=== PATIENT | female | born 1970 | race Caucasian/White ===

== ENCOUNTER 2017-09-18 12:38 | Emergency (ER) | payer SELFPAY ==
[~2017-09-18] VITALS: Ht 154.9 cm; Wt 73.0 kg
[2017-09-18 12:42] VITALS: BP 155/90; PULSE 82; RESP 16; TEMP 98; O2SAT 98
--- NOTE | 2017-09-18 13:05 | PD ---
HPI Chief Complaint: ENT Complaint Time Seen by Provider: 12:48 Travel History International Travel<30 days: No Contact w/Intl Traveler<30days: No Traveled to known affect area: No History of Present Illness HPI Patient reports foreign body sensation in the left ear. Duration about 1 day. Timing is intermittent. Severity mild. no loss of hearing. Positive tinnitus. Onset sudden. PFSH Past Medical History Medical History: Denies Significant Hx Diminished Hearing: No Influenza Vaccination: No ?: Not Past Surgical History Surgical History: No Previous Surgery Social History Alcohol Use: No Tobacco Use: Yes (1 PPD) Allergies-Medications (Allergen,Severity, Reaction): Coded Allergies: No Known Allergies (Unverified Adverse Reaction, Unknown, 09/18/17) Reported Meds & Prescriptions Reported Meds & Active Scripts Active No Active Prescriptions or Reported Medications Review of Systems General / Constitutional: No: Fever Respiratory: No: Cough, Shortness of Breath, Wheezing Physical Exam Narrative GENERAL: 47 yo F, NAD, WNWD EARS: Along the L TM there is 1 hair follicle about 1 cm in length. no mastoid tenderness. no otorrhea. SKIN: Warm and dry. HEAD: Normocephalic. EYES: No scleral icterus. No injection or drainage. NECK: Supple, trachea midline. No JVD or lymphadenopathy. CARDIOVASCULAR: Regular rate and rhythm without murmurs, gallops, or rubs. RESPIRATORY: Breath sounds equal bilaterally. No accessory muscle use. GASTROINTESTINAL: Abdomen soft, non-tender, nondistended. MUSCULOSKELETAL: No cyanosis, or edema. BACK: Nontender without obvious deformity. No CVA tenderness. Data Data Last Documented VS Vital Signs Date Time Temp Pulse Resp B/P (MAP) Pulse Ox O2 Delivery O2 Flow Rate FiO2 09/18/17 12:42 98.0 82 16 155/90 (111) 98 VS reviewed Orders Orders Ed Discharge Order (09/18/17 13:05) MDM Medical Decision Making Medical Screen Exam Complete: Yes Emergency Medical Condition: Yes Medical Record Reviewed: Yes Differential Diagnosis Foreign body, otitis media, otitis externa Narrative Course Patient has a minute hair on the tympanic membrane on the left side. Lidocaine was instilled into the external ear canal. It was then irrigated. Reexamination reveals no foreign body/hair. Patient reports improvement and is ready for discharge. Diagnosis Primary Impression: Foreign body in ear Qualified Codes: T16.2XXA - Foreign body in left ear, initial encounter Med/Other Pt SpecificInfo: No Change to Meds Scripts No Active Prescriptions or Reported Meds Disposition: 01 DISCHARGE HOME Condition: Stable Juan Thompson MD Sep 18, 2017 13:05
== END 2017-09-18 13:25 | disposition home or self-care (01) ==
LOC: PHEFT 12:38
DX: T16.2XXA Foreign body in left ear, initial encounter (principal); F17.200 Nicotine dependence, unspecified, uncomplicated
CPT/HCPCS: 99283

== ENCOUNTER 2018-01-01 10:27 | Emergency (ER) | payer SELFPAY ==
[~2018-01-01] VITALS: Ht 154.9 cm; Wt 75.0 kg
[2018-01-01 10:34] VITALS: BP 116/73; PULSE 109; RESP 16; TEMP 99.5; O2SAT 96
--- NOTE | 2018-01-01 11:41 | PD ---
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 Pt said she has been having dysuria, felt warm but no documented fever, and has vaginal itching. Pt also said she has been having flu like symptoms with coughing and feels like her chest hurts when she coughs. Denies any n/v, abdominal pain, focal weakness or numbness. PFSH Past Medical History Diminished Hearing: No ?: Not LMP: menapause Social History Alcohol Use: No Tobacco Use: Yes (1 PPD) Allergies-Medications (Allergen,Severity, Reaction): Coded Allergies: No Known Allergies (Unverified Adverse Reaction, Unknown, 01/01/18) Reported Meds & Prescriptions Reported Meds & Active Scripts Active Bactrim DS (Sulfamethoxazole-Trimethoprim) 800-160 Mg Tab 1 Tab PO BID Review of Systems Except as stated in HPI: all other systems reviewed are Neg Physical Exam Narrative GENERAL: 47yo F not in distress. SKIN: Focused skin assessment warm/dry. HEAD: Atraumatic. Normocephalic. EYES: Pupils equal and round. No scleral icterus. No injection or drainage. ENT: Throat: Uvula midline. No exudate. NECK: Trachea midline. No JVD. CARDIOVASCULAR: Regular rate and rhythm. No murmur appreciated. RESPIRATORY: No accessory muscle use. Clear to auscultation. Breath sounds equal bilaterally. GASTROINTESTINAL: Abdomen soft, non-tender, nondistended.. PELVIC: +Erythematous rash with central clearing in bilateral medial thighs. Pt said that is the area that is itching. +White vaginal discharge. No CMT or adnexal tenderness bilaterally. MUSCULOSKELETAL: No obvious deformities. No clubbing. No cyanosis. No edema. NEUROLOGICAL: Awake and alert. No obvious cranial nerve deficits. Motor grossly within normal limits. Normal speech. PSYCHIATRIC: Appropriate mood and affect; insight and judgment normal. Data Data Last Documented VS Vital Signs Date Time Temp Pulse Resp B/P (MAP) Pulse Ox O2 Delivery O2 Flow Rate FiO2 01/01/18 13:31 86 18 106/61 (76) 100 Room Air 01/01/18 10:34 99.5 Orders Orders Electrocardiogram (01/01/18 ) Complete Blood Count With Diff (01/01/18 11:40) Basic Metabolic Panel (Bmp) (01/01/18 11:40) Troponin I (01/01/18 11:40) Chest, Single Ap (01/01/18 ) Ed Urine Pregnancytest Poc (01/01/18 11:40) Urinalysis - C+S If Indicated (01/01/18 11:40) Gc And Chlamydia Pcr (01/01/18 11:40) Wet Prep Profile (01/01/18 11:40) Influenzae A/B Antigen (01/01/18 11:40) Thyroid Stimulating Hormone (01/01/18 11:45) Urine Culture (01/01/18 12:10) Ed Discharge Order (01/01/18 13:33) Labs Laboratory Tests Test 01/01/18 11:45 01/01/18 12:00 01/01/18 12:10 White Blood Count 7.2 TH/MM3 Red Blood Count 5.25 MIL/MM3 Hemoglobin 14.1 GM/DL Hematocrit 44.4 % Mean Corpuscular Volume 84.5 FL Mean Corpuscular Hemoglobin 26.8 PG Mean Corpuscular Hemoglobin Concent 31.7 % Red Cell Distribution Width 12.9 % Platelet Count 357 TH/MM3 Mean Platelet Volume 7.4 FL Neutrophils (%) (Auto) 70.4 % Lymphocytes (%) (Auto) 17.0 % Monocytes (%) (Auto) 11.4 % Eosinophils (%) (Auto) 0.0 % Basophils (%) (Auto) 1.2 % Neutrophils # (Auto) 5.1 TH/MM3 Lymphocytes # (Auto) 1.2 TH/MM3 Monocytes # (Auto) 0.8 TH/MM3 Eosinophils # (Auto) 0.0 TH/MM3 Basophils # (Auto) 0.1 TH/MM3 CBC Comment AUTO DIFF Differential Comment AUTO DIFF CONFIRMED Blood Urea Nitrogen 7 MG/DL Creatinine 0.85 MG/DL Random Glucose 106 MG/DL Calcium Level 8.8 MG/DL Sodium Level 136 MEQ/L Potassium Level 3.5 MEQ/L Chloride Level 98 MEQ/L Carbon Dioxide Level 29.4 MEQ/L Anion Gap 9 MEQ/L Estimat Glomerular Filtration Rate 72 ML/MIN Troponin I LESS THAN 0.02 NG/ML Thyroid Stimulating Hormone 3rd Gen 0.981 uIU/ML Clue Cells (Wet Prep) NONE SEEN Vaginal Trichomonas (Wet Prep) NONE SEEN Vaginal Yeast (Wet Prep) NONE SEEN Urine Collection Type CLEAN CATCH Urine Color YELLOW Urine Turbidity SL CLOUDY Urine pH 6.0 Urine Specific [place] 1.015 Urine Protein TRACE mg/dL Urine Glucose (UA) NEG mg/dL Urine Ketones NEG mg/dL Urine Occult Blood SMALL Urine Nitrite NEG Urine Bilirubin NEG Urine Urobilinogen 1.0 MG/DL Urine Leukocyte Esterase SMALL Urine RBC 10-14 /hpf Urine WBC 100-200 /hpf Urine WBC Clumps MOD Urine Squamous Epithelial Cells 0-5 /hpf Urine Bacteria FEW /hpf Microscopic Urinalysis Comment CULTURE INDICATED Urine Collection Time 12:10 [facility] Medical Decision Making Medical Screen Exam Complete: Yes Emergency Medical Condition: Yes Interpretation(s) EKG: NSR 89bpm. LAD. No ST segment elevation or depression. Differential Diagnosis Tinea vs. UTI vs. vaginal candidiasis vs. viral syndrome vs. pneumonia Narrative Course 47yo F here with multiple complaints. Labs reviewed, no leukocytosis. H/H normal. BMP unremarkable. Troponin negative. TSH normal. UA showed large WBC. Few bacteria. Wet prep negative. Influenza negative. CXR shwoed 5mm nodule left mid lung which I informed the patient to follow up with. Pt given dose of bactrim. Return precautions given. Diagnosis Primary Impression: UTI (urinary tract infection) Qualified Codes: N39.0 - Urinary tract infection, site not specified; R31.9 - Hematuria, unspecified Patient Instructions: General Instructions Departure Forms: Tests/Procedures Additional Instructions: Please follow up with your primary care physician in 2-3 days. Return to the ED if symptoms worsen. Med/Other Pt SpecificInfo: Prescription(s) given Scripts Clotrimazole Topical (Clotrimazole Topical) 1% Soln 1 APPLIC TOPICAL BID for Fungal Infection for 14 Days, #10 ML 0 Refills Prov: Cristal Woods DO 01/01/18 Sulfamethoxazole-Trimethoprim (Bactrim DS) 800-160 Mg Tab 1 TAB PO BID for Infection, #14 TAB 0 Refills Prov: Cristal Woods DO 01/01/18 Disposition: 01 DISCHARGE HOME Condition: Stable Cristal Woods DO Jan 01, 2018 11:41
--- NOTE | 2018-01-01 12:00 | RADRPT ---
EXAM DATE/TIME: 01/01/2018 11:41 [facility] COMPARISON: No previous studies available for comparison. INDICATIONS : Cough MEDICAL HISTORY : Smoker SURGICAL HISTORY : None. ENCOUNTER: Initial ACUITY: 2 days PAIN SCORE: 0/10 LOCATION: chest FINDINGS: 5 mm nodule left midlung. Right lung clear. The heart and pulmonary vascularity are normal. The port ion of the bony skeleton visualized is unremarkable. CONCLUSION: 5 mm nodule right midlung Raji Alan MD FACR on January 01, 2018 at 11:57 Board Certified Radiologist. This report was verified electronically.
[2018-01-01 12:04] LABS: AUTOMATED NEUTROPHIL # 5.1 TH/MM3 (1.8-7.7); BASOPHIL # 0.1 TH/MM3 (0-0.2); BASOPHIL % 1.2 % (0.0-2.0); HEMATOCRIT 44.4 % (35.0-46.0); HEMOGLOBIN 14.1 GM/DL (11.6-15.3); LYMPHOCYTE # 1.2 TH/MM3 (1.0-4.8); MEAN CELL VOLUME 84.5 FL (80.0-100.0); MEAN CORPUSCULAR HEMOGLOBIN 26.8 PG (27.0-34.0); MEAN CORPUSCULAR HGB CONC 31.7 % (32.0-36.0); MEAN PLATELET VOLUME 7.4 FL (7.0-11.0); MONO % 11.4 % (0.0-8.0); MONOCYTE # 0.8 TH/MM3 (0-0.9); NEUT % 70.4 % (16.0-70.0); PLATELET COUNT 357 TH/MM3 (150-450); RED BLOOD COUNT 5.25 MIL/MM3 (4.00-5.30); RED CELL DISTRIBUTION WIDTH 12.9 % (11.6-17.2); WHITE BLOOD COUNT 7.2 TH/MM3 (4.0-11.0)
[2018-01-01 12:15] LABS: BILIRUBIN, URINE NEG (NEG); BLOOD, URINE SMALL (NEG); GLUCOSE,URINE NEG (NEG); KETONE, URINE NEG (NEG); NITRITE,URINE NEG (NEG); URINE COLOR YELLOW (YELLW/STRAW); URINE LEUKOCYTE ESTERASE SMALL (NEG)
[2018-01-01 12:16] LABS: CHLORIDE 98 MEQ/L (98-107); SODIUM (NA) 136 MEQ/L (136-145)
[2018-01-01 12:19] LABS: CALCIUM 8.8 MG/DL (8.5-10.1)
[2018-01-01 12:20] LABS: BICARBONATE 29.4 MEQ/L (21.0-32.0); GLUCOSE,RANDOM 106 MG/DL (74-106)
[2018-01-01 12:21] LABS: WBC, URINE 100-200 /hpf (0-5); WHITE BLOOD CELL CLUMPS MOD
[2018-01-01 12:22] LABS: BACTERIA, URINE FEW /hpf; SQUAMOUS EPITHELIAL CELL URINE 0-5 /hpf (0-5)
[2018-01-01 12:23] LABS: CREATININE 0.85 MG/DL (0.50-1.00); GLOMERULAR FILTRATION RATE 72 ML/MIN (>89)
[2018-01-01 12:24] LABS: BLOOD UREA NITROGEN 7 MG/DL (7-18)
[2018-01-01 12:28] LABS: TROPONIN I LESS THAN 0.02 NG/ML (0.02-0.05)
[2018-01-01 13:31] VITALS: BP 106/61; PULSE 86; RESP 18; O2SAT 100
[2018-01-01] MEDS ORDERED: BACT800T5 PO (13:33)
[2018-01-01] MEDS ORDERED: CLOTR1%T TOPICAL (13:35)
[2018-01-01] MEDS ORDERED: SULFAMETHOXAZOLE-TRIMETHOPRIM DS 800-160 MG TAB PO ONE (13:45)
--- NOTE | 2018-01-02 23:28 | EKG ---
Date Performed: 01/01/2018 Time Performed: 11:49:44 PTAGE: 47 years EKG: Sinus rhythm POSSIBLE RIGHT VENTRICULAR CONDUCTION DELAY BORDERLINE ECG NO PREVIOUS TRACING DOCTOR: Fernando Thompson Interpretating Date/Time 01/02/2018 23:27:37
== END 2018-01-01 14:04 | disposition home or self-care (01) ==
LOC: PHED 10:27
DX: N39.0 Urinary tract infection, site not specified (principal); R31.9 Hematuria, unspecified; R05 Cough; R07.9 Chest pain, unspecified; R91.1 Solitary pulmonary nodule; F17.200 Nicotine dependence, unspecified, uncomplicated
CPT/HCPCS: 71045; 80048; 81001; 84443; 84484; 84703; 85025; 87077; 87086; 87186; 87210; 87491; 87591; 87804; 93005; 96372